=== PATIENT | male | born 1965 | race Caucasian/White ===

== ENCOUNTER 2017-06-02 10:52 | Emergency (ER) | payer BC, OTHER ==
[2017-06-02 13:17] VITALS: BP 115/77
--- NOTE | 2017-06-03 22:18 | UC ---
Darrel Nick Nilda, scribed for Nicolas Smith MD on 06/02/17 at 1331 . FLU HPI - HPI Summary HPI Summary: This patient is a 52 year old M presenting to [facility] with a chief complaint of constant flu-like symptoms for the past 5 days. The patient rates the pain 2/10 in severity. Symptoms aggravated and alleviated by nothing. Patient reports cough, rhinorrhea, body aches, fever, and headache. - History of Current Complaint Chief Complaint: UCGeneralIllness Stated Complaint: COUGH,SORE THROAT Time Seen by Provider: 06/02/17 13:26 Hx Obtained From: Patient Onset/Duration: Sudden Onset, Lasting Days, Still Present Severity Initially: Mild Pain Intensity: 2 Pain Scale Used: 0-10 Numeric Associated Signs & Symptoms: Positive: Fever, Myalgia, Cough, Headache - Allergy/Home Medications Allergies/Adverse Reactions: Allergies Allergy/AdvReac Type Severity Reaction Status Date / Time No Known Allergies Allergy Verified 06/02/17 13:17 Home Medications: Home Medications Ibuprofen [Ibuprofen 200] 400 mg PO Q6HR PRN 06/02/17 [History Confirmed ] PMH/Surg Hx/FS Hx/Imm Hx Previously Healthy: Yes - Surgical History Surgical History: None - Family History Known Family History: Negative: Cardiac Disease, Hypertension, Diabetes - Social History Alcohol Use: Daily Alcohol Amount: 1beer/day Substance Use Type: None Smoking Status (MU): Heavy Every Day Tobacco Smoker Type: Cigarettes - Immunization History Most Recent Tetanus Shot: unknown Review of Systems Constitutional: Fever ENT: Nasal Discharge Respiratory: Cough Musculoskeletal: Myalgia Neurological: Headache All Other Systems Reviewed And Are Negative: Yes Physical Exam Triage Information Reviewed: Yes Vital Signs: Initial Vital Signs Temp 98.7 F 06/02/17 13:14 Pulse 100 06/02/17 13:14 Resp 20 06/02/17 13:14 BP 115/77 06/02/17 13:14 Pulse Ox 97 06/02/17 13:14 Vital Signs Reviewed: Yes - Additional Comments Vital signs: Reviewed Gen.: Patient is a well developed and nourished male in no acute distress. Patient is sitting comfortably on the stretcher. Head: Normacephalic and atraumatic Eyes: PERRLA, EOMI x2. Ears: Right ear canal and TM WNL and Left ear canal and TM WNL Nose and mouth: Nose with dry mucosa and clear discharge, no pharyngeal erythema with no exudate. Neck: Supple, Positive bilateral submandibular and anterior cervical lymphadenopathy. No JVD Lungs: CTA B/L CVS: S1 & S2 present. No murmurs appreciated. ABDOMEN: Soft NT w/ positive BS. EXT: FROM x 4 NEURO: A+O X 3. Flu Course/Dx - Course Course Of Treatment: This patient is a 52 year old M presenting to [facility] with a chief complaint of constant flu-like symptoms for the past 5 days. The patient rates the pain 2/10 in severity. Symptoms aggravated and alleviated by nothing. Patient reports cough, rhinorrhea, body aches, fever, and headache. Pt declined flu test. Pt is stable and will be D/C with a Dx of presumptive influenza and a prescription for Tamiflu. I discussed all the findings and test results with the patient. Pt was instructed to return to the urgent care or go to ER immediately if any of the symptoms return or worsens. Plan of care was discussed with the patient and pt understands and agrees. All questions were answered to patient satisfaction. There were no further complaints or concerns. - Differential Dx/Diagnosis Differential Diagnosis/HQI/PQRI: Bronchitis, Influenza, Upper Respiratory Infection Provider Diagnoses: Presumptive influenza Discharge - Discharge Plan Condition: Stable Disposition: HOME Prescriptions: Oseltamivir CAP* [Tamiflu CAP*] 75 mg PO BID #10 cap Patient Education Materials: Influenza (DC) Referrals: [facility] [Outside] No Primary Care Phys,NOPCP [Primary Care Provider] - Additional Instructions: Increase fluid intake Take medication as indicated The documentation as recorded by the Darrel wheeler Nilda accurately reflects the service I personally performed and the decisions made by me, Nicolas Smith MD.
== END 2017-06-02 13:39 | disposition home or self-care (01) ==
LOC: UCEAST 10:52
DX: R05 Cough (principal); J34.89 Other specified disorders of nose and nasal sinuses; M79.1 Myalgia; R50.9 Fever, unspecified; R51 Headache; F17.210 Nicotine dependence, cigarettes, uncomplicated
CPT/HCPCS: 99212; G0463

== ENCOUNTER 2017-11-26 23:44 | Inpatient (IN) | payer BC, OTHER ==
[2017-11-27] MEDS ORDERED: Albuterol 0.5% CONC NEB.SOL* 5 MG/ML 20 ml BOT INH ONE ×2 (00:07→01:52)
[2017-11-27] MEDS ORDERED: Azithromycin TAB* 250 MG PO ONE (00:07)
[2017-11-27] MEDS ORDERED: methylPREDNISolone 125 MG* 2 ML VIAL IV ONE (00:07)
[2017-11-27] MEDS ORDERED: Magnesium Sulfate 2 GM IV* 2 GM/50 ML BAG IVPB ONE (00:07)
[2017-11-27 00:33] LABS: ABS Basophils 0.1 10^3/ul (0-0.2); ABS Eosinophils 0.6 10^3/ul (0-0.6); ABS Lymphocytes 2.6 10^3/ul (1.0-4.8); ABS Monocytes 1.5 10^3/ul (0-0.8); ABS Neutrophils 10.1 10^3/ul (1.5-7.7); ABS Nucleated RBC 0 10^3/ul; Hematocrit 50 % (42-52); Hemoglobin 17.5 g/dl (14.0-18.0); Lymphocyte % 17.6 % (25-47); Mean Corpuscular HGB Conc 35 g/dl (31-36); Mean Corpuscular Hemoglobin 35 pg (27-31); Mean Corpuscular Volume 99 fL (80-94); Mean Platelet Volume 7.2 um3 (7.4-10.4); Nucleated Red Blood Cells % 0; Platelet Count 231 10^3/ul (150-450); Red Blood Count 5.01 10^6/ul (4.00-5.40); Red Cell Distribution Width 13 % (10.5-15)
[2017-11-27 00:50] LABS: EGFR Non-African American 140.9 (>60)
--- NOTE | 2017-11-27 01:01 | ED ---
Shortness of Breath - HPI Summary HPI Summary: This is summer Mckeon documenting for attending Dr. Quan Patel MD. The patient is a 52 y/o M presenting to [facility] c/o SOB and respiratory distress starting two days ago and worsening today. He has had a nonproductive cough with increased sneezing that he reports seemed different than normal. His states that is only able to get half breaths in and out, and he hasn't been able to catch his breath. There is no pain associated. He denies CP. He has a remote hx of asthma and is also just getting over a cold. He smokes one pack of cigarettes a day. - History of Current Complaint Chief Complaint: EDShortnessOfBreath Time Seen by Provider: 11/27/17 00:01 Hx Obtained From: Patient Onset/Duration: Sudden Onset, Lasting Days, Still Present Timing: Constant Current Severity: Moderate Dyspnea At: Rest Aggrevating Factors: Nothing Alleviating Factors: Nothing Associated Signs & Symptoms: Negative - CP, Cough (Nonproductive) - Allergy/Home Medications Allergies/Adverse Reactions: Allergies Allergy/AdvReac Type Severity Reaction Status Date / Time No Known Allergies Allergy Verified 11/26/17 23:49 Home Medications: Home Medications Humira Pen 11/27/17 [History] PMH/Surg Hx/FS Hx/Imm Hx Endocrine/Hematology History: Denies: Hx Diabetes Respiratory History: Denies: Hx Asthma, Hx Chronic Obstructive Pulmonary Disease (COPD) - pt does smoke but undiagnosed - Immunization History Date of Tetanus Vaccine: utd Date of Influenza Vaccine: none Infectious Disease History: No Infectious Disease History: Denies: Traveled Outside the [place] in Last 30 Days - Family History Known Family History: Negative: Cardiac Disease, Hypertension, Diabetes - Social History Alcohol Use: Daily Alcohol Amount: 1beer/day Substance Use Type: Reports: None Smoking Status (MU): Heavy Every Day Tobacco Smoker Type: Cigarettes Review of Systems Positive: Other - increased sneezing Negative: Chest Pain Positive: Shortness Of Breath, Cough - nonproductive All Other Systems Reviewed And Are Negative: Yes Physical Exam - Summary Physical Exam Summary: Appearance: Well-appearing, Well-nourished, lying in bed comfortably with moderate distress Skin: Warm, dry, no obvious rash Eyes: sclera anicteric, no conjunctival pallor ENT: mucous membranes moist, pharynx appears normal Neck: Supple, nontender Respiratory: Clear to auscultation, obvious moderate respiratory distress, belly breathing, audible wheezes, prolonged expiratory phase, diffuse aeration Cardiovascular: Normal S1, S2. No murmurs. Normal distal pulses in tibial and radial bilaterally. Abdomen: Soft, nontender, normal active bowel sounds present Musculoskeletal: Normal, Strength/ROM Intact Neurological: A&Ox3, awake and alert, mentation is normal, speech is fluent and appropriate Psychiatric: affect is normal, does not appear anxious or depressed Triage Information Reviewed: Yes Vital Signs On Initial Exam: Initial Vitals Temp Pulse Resp BP Pulse Ox 98.3 F 109 22 143/97 91 11/26/17 23:49 11/26/17 23:49 11/26/17 23:49 11/26/17 23:49 11/26/17 23:49 Vital Signs Reviewed: Yes Diagnostics - Vital Signs Vital Signs Temp Pulse Resp BP Pulse Ox 11/27/17 00:39 108 27 139/97 98 11/27/17 00:25 108 29 130/100 98 11/27/17 00:21 106 20 97 11/27/17 00:04 27 134/96 11/27/17 00:01 23 11/26/17 23:59 33 155/90 11/26/17 23:49 98.3 F 109 22 143/97 91 - Laboratory Lab Results: Lab Results 11/27/17 11/27/17 Range/Units 00:19 00:19 WBC 15.0 H (3.5-10.8) 10^3/ul RBC 5.01 (4.00-5.40) 10^6/ul Hgb 17.5 (14.0-18.0) g/dl Hct 50 (42-52) % MCV 99 H (80-94) fL MCH 35 H (27-31) pg MCHC 35 (31-36) g/dl RDW 13 (10.5-15) % Plt Count 231 (150-450) 10^3/ul MPV 7.2 L (7.4-10.4) um3 Neut % (Auto) 67.6 (38-83) % Lymph % (Auto) 17.6 L (25-47) % [place] % (Auto) 10.1 H (0-7) % Eos % (Auto) 4.0 (0-6) % Baso % (Auto) 0.7 (0-2) % Absolute Neuts (auto) 10.1 H (1.5-7.7) 10^3/ul Absolute Lymphs (auto) 2.6 (1.0-4.8) 10^3/ul Absolute Monos (auto) 1.5 H (0-0.8) 10^3/ul Absolute Eos (auto) 0.6 (0-0.6) 10^3/ul Absolute Basos (auto) 0.1 (0-0.2) 10^3/ul Absolute Nucleated RBC 0 10^3/ul Nucleated RBC % 0 Sodium 132 L (135-145) mmol/L Potassium 3.7 (3.5-5.0) mmol/L Chloride 98 L (101-111) mmol/L Carbon Dioxide 23 (22-32) mmol/L Anion Gap 11 (2-11) mmol/L BUN 5 L (6-24) mg/dL Creatinine 0.60 L (0.67-1.17) mg/dL Est GFR ( Amer) 170.5 (>60) Est GFR (Non-Af Amer) 140.9 (>60) BUN/Creatinine Ratio 8.3 (8-20) Glucose 110 H (70-100) mg/dL Calcium 9.5 (8.6-10.3) mg/dL Total Bilirubin 0.40 (0.2-1.0) mg/dL AST 20 (13-39) U/L ALT 16 (7-52) U/L Alkaline Phosphatase 85 (34-104) U/L Troponin I 0.00 (<0.04) ng/mL Total Protein 7.8 (6.4-8.9) g/dL Albumin 4.1 (3.2-5.2) g/dL Globulin 3.7 (2-4) g/dL Albumin/Globulin Ratio 1.1 (1-3) Result Diagrams: 11/27/17 00:19 11/27/17 00:19 Lab Statement: Any lab studies that have been ordered have been reviewed, and results considered in the medical decision making process. - Radiology CXR Xray Interpretation: No Acute Changes - No acute disease. ED physician has reviewed this report. Radiology Interpretation Completed By: Radiologist - EKG 00:15 Cardiac Rate: Tachycardia - 109 BPM EKG Rhythm: Sinus Tachycardia EKG Interpretation: ST O/W nml. Course/Dx - Diagnoses Differential Diagnosis/HQI/PQRI: Positive: Asthma, Bronchitis, CHF, Chest Wall Pain, COPD Exacerbation, Pneumonia, Pneumothorax, Pulmonary Embolism Provider Diagnoses: COPD exacerbation, Respiratory distress - Physician Notifications Discussed Care of Patient With: Lyle Head Time Discussed With Above Provider: 03:43 Instructed by Provider To: Admit As Inpatient Admit/Transition Orders Completed By ED Provider: Yes Discharge - Sign-Out/Discharge Documenting (check all that apply): Patient Departure - Pt will be admitted to [facility]. - Discharge Plan Condition: Guarded Disposition: ADMITTED TO [facility] - Billing Disposition and Condition Condition: GUARDED Disposition: Admitted to [facility]
[2017-11-27] MEDS ORDERED: Ondansetron ODT TAB* 4 MG PO PRN (04:26)
[2017-11-27] MEDS ORDERED: Albuterol 2.5 MG/3 ML NEB.SOL* (0.083%) INH PRN (04:26)
[2017-11-27] MEDS ORDERED: Melatonin 3 MG TAB PO PRN (04:26)
[2017-11-27] MEDS ORDERED: Acetaminophen TAB* 325 MG PO PRN (04:26)
--- NOTE | 2017-11-27 04:32 | HP ---
H&P (Free Text) History and Physical: PCP: none, formerly Jasper Denney MD Date/Time: 4521 CC: SOB HPI: Mr Mcgowan is a 52YO male HX exercise induced asthma & ureterolithiasis who presents with onset Tuesday of cough and progressive SOB with scant clear phlegm & mild sweats, but no chest pain, palpitations, F/C, or palpitations. He has had some light-headedness and emesis 2nd cough, but no nausea. He denies changes in bowel/bladder, headache, or other issues. ED evaluation is notable for a positive SIRS screen 2nd tachycardia & tachypnea, w/o leukocytosis. He had some hypoxia into the high 80s/low 90s. CXR is negative. He reports smoking 1-2 PPD escalating recently, starting at ~age 15. Father had COPD. 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; full code status FamHx: Mother: passed 88 2nd "old age"; Father: passed 82 2nd complications of COPD & dementia; sister x2: alive, healthy; brothers x2: alive, healthy ROS: as above, otherwise reviewed and all were negative vitals: Vital Signs Temp 37.2 C 11/27/17 05:14 Pulse 121 11/27/17 05:14 Resp 30 11/27/17 05:14 BP 122/82 11/27/17 05:14 Pulse Ox 90 11/27/17 05:14 Intake & Output 11/26/17 11/26/17 11/27/17 11:59 23:59 11:59 Intake Total 50 Balance 50 Weight 79.379 kg Intake: IV Fluids 50 Constitutional: NAD, normally developed, overweight white male HEENM: atraumatic; sclera/conjunctiva: anicteric/clear; hearing: clinically intact; oropharynx: clear, mucosa moist Neck: soft tissue: non-tender; thyroid: normal Pulmonary: diminished B w/ scant L>R end-expiratory wheeze, fair to poor aeration, no accessory muscle use CV:TR/RR, normal S1S2, no carotid bruit, no jugular venous distention, 2+ B DP/ PT, no edema Abdominal: soft, non-distended, non-tender, no rebound/guarding/rigidity, normoactive bowel sounds, no hepatosplenomegaly or masses, no costovertebral angle tenderness Musculoskeletal: general: grossly intact Integumental: no acute issues Psychiatric orientation: AA&O to PPS affect: calm mood: cooperative eye contact: fair content: reliable responses: timely insight: fair to good Testing: Lab Results 11/27/17 11/27/17 11/27/17 Range/Units 00:19 00:19 05:11 WBC 15.0 H (3.5-10.8) 10^3/ul RBC 5.01 (4.00-5.40) 10^6/ul Hgb 17.5 (14.0-18.0) g/dl Hct 50 (42-52) % MCV 99 H (80-94) fL MCH 35 H (27-31) pg MCHC 35 (31-36) g/dl RDW 13 (10.5-15) % Plt Count 231 (150-450) 10^3/ul MPV 7.2 L (7.4-10.4) um3 Neut % (Auto) 67.6 (38-83) % Lymph % (Auto) 17.6 L (25-47) % [place] % (Auto) 10.1 H (0-7) % Eos % (Auto) 4.0 (0-6) % Baso % (Auto) 0.7 (0-2) % Absolute Neuts (auto) 10.1 H (1.5-7.7) 10^3/ul Absolute Lymphs (auto) 2.6 (1.0-4.8) 10^3/ul Absolute Monos (auto) 1.5 H (0-0.8) 10^3/ul Absolute Eos (auto) 0.6 (0-0.6) 10^3/ul Absolute Basos (auto) 0.1 (0-0.2) 10^3/ul Absolute Nucleated RBC 0 10^3/ul Nucleated RBC % 0 INR (Anticoag Therapy) 0.92 (0.77-1.02) APTT 30.9 (26.0-36.3) seconds Sodium 132 L (135-145) mmol/L Potassium 3.7 (3.5-5.0) mmol/L Chloride 98 L (101-111) mmol/L Carbon Dioxide 23 (22-32) mmol/L Anion Gap 11 (2-11) mmol/L BUN 5 L (6-24) mg/dL Creatinine 0.60 L (0.67-1.17) mg/dL Est GFR ( Amer) 170.5 (>60) Est GFR (Non-Af Amer) 140.9 (>60) BUN/Creatinine Ratio 8.3 (8-20) Glucose 110 H (70-100) mg/dL Calcium 9.5 (8.6-10.3) mg/dL Total Bilirubin 0.40 (0.2-1.0) mg/dL AST 20 (13-39) U/L ALT 16 (7-52) U/L Alkaline Phosphatase 85 (34-104) U/L Troponin I 0.00 (<0.04) ng/mL Total Protein 7.8 (6.4-8.9) g/dL Albumin 4.1 (3.2-5.2) g/dL Globulin 3.7 (2-4) g/dL Albumin/Globulin Ratio 1.1 (1-3) ECG, personally reviewed: sinus tachycardia rate 109, mild ST depression II/III/ AVF; no comparison CXR, personally reviewed: no acute process Impression: 52M w/ minimal PMHx presents with COPD exacerbation & abnormal ECG DIAGNOSIS & PLAN Primary COPD exacerbation : albuterol : mometasone/formoterol : tiotropium : IV methylprednisolone : incentive spirometry : supplemental oxygen : supportive care : smoking cessation advised, mild-moderate motivation abnormal ECG : asympotomatic, likely demand ischemic change : trend troponin Admission Rational: Inpatient for COPD management not anticipated to be adequately controlled w/i 48h to allow for discharge DVTp: heparin SQ Code Status: full
[2017-11-27 05:29] LABS: INR 0.92 (0.77-1.02)
[2017-11-27] MEDS: NS 0.9% 1000 ML* 1,000 ML IV SCH (05:40)
[2017-11-27] MEDS: Heparin VIAL(*) 5000 UNITS/ML VIAL (FIVE THOUSAND) SUBCUT SCH ×3 (05:40→21:51)
[2017-11-27] MEDS: Omeprazole CAP* 20 MG PO SCH (05:41)
[2017-11-27] MEDS ORDERED: Albuterol 2.5 MG/3 ML NEB.SOL* (0.083%) INH SCH (07:00)
[2017-11-27] MEDS: Albuterol 2.5 MG/3 ML NEB.SOL* (0.083%) INH SCH ×5 (07:30→23:32)
[2017-11-27] MEDS: Tiotropium CAP.INH* CAP.INH/18 MCG (USE ORDER SET !) INH SCH (07:31)
[2017-11-27] MEDS: Mometasone/Formoter 200/5 MDI INH SCH ×2 (07:31→20:57)
[2017-11-27 07:38] LABS: ABS Basophils 0 10^3/ul (0-0.2); ABS Eosinophils 0 10^3/ul (0-0.6); ABS Lymphocytes 0.4 10^3/ul (1.0-4.8); ABS Monocytes 0.1 10^3/ul (0-0.8); ABS Neutrophils 9.7 10^3/ul (1.5-7.7); ABS Nucleated RBC 0 10^3/ul; Eosinophil % 0.1 % (0-6); Hematocrit 47 % (42-52); Hemoglobin 16.6 g/dl (14.0-18.0); Lymphocyte % 4.3 % (25-47); Mean Corpuscular HGB Conc 35 g/dl (31-36); Mean Corpuscular Hemoglobin 35 pg (27-31); Mean Corpuscular Volume 99 fL (80-94); Mean Platelet Volume 7.7 um3 (7.4-10.4); Nucleated Red Blood Cells % 0.1; Platelet Count 221 10^3/ul (150-450); Red Blood Count 4.74 10^6/ul (4.00-5.40); Red Cell Distribution Width 13 % (10.5-15); White Blood Count 10.3 10^3/ul (3.5-10.8)
--- NOTE | 2017-11-27 07:46 | RAD ---
INDICATION: Dyspnea COMPARISON: None TECHNIQUE: PA and lateral dual-energy views were obtained. FINDINGS: Bones/Soft Tissues: There are no acute bony findings. Cardiomediastinal: The cardiomediastinal silhouette is normal. Lungs: There are no infiltrates. Pleura: There are no pleural effusions. Other: None IMPRESSION: NO ACTIVE DISEASE. R1
[2017-11-27] MEDS ORDERED: Pneumococcal *Vac Polyvalent 0.5 ML VIAL IM ONE (09:00)
[2017-11-27] MEDS ORDERED: Spiriva Inhaler DEVICE* 1 EACH DEVICE INH SCH (09:00)
[2017-11-27] MEDS: cefTRIAXone(*) 1 GM in NS 0.9% 50 ML* 50 ML IVPB SCH (10:56)
--- NOTE | 2017-11-27 16:30 | PN ---
Subjective Date of Service: 11/27/17 Interval History: HOSPITALIST PROGRESS NOTE Patient seen and examined at bedside. Care reviewed and d/w Annalisa Roland RN. He feels a little better today, but breathing is not back to baseline. Still has frequent moist cough. Family History: Unchanged from Admission Social History: Unchanged from Admission Past Medical History: Unchanged from Admission Objective Active Medications: Acetaminophen (Tylenol Tab*) 650 mg PO Q6H PRN PRN Reason: FEVER/PAIN Last Admin: 11/27/17 15:13 Dose: 650 mg Albuterol (Ventolin 2.5 Mg/3 Ml Neb.Joseline*) 2.5 mg INH Q2H PRN PRN Reason: SOB/WHEEZING Albuterol (Ventolin 2.5 Mg/3 Ml Neb.Joseline*) 2.5 mg INH [id number] AWAKE [facility] Last Admin: 11/27/17 14:33 Dose: 2.5 mg Azithromycin (Zithromax Tab*) 500 mg PO DAILY@2100 [facility] Device (Tiotropium Inhaler Device*) 1 each INH .USE w/ SPIRIVA CAPS [facility] Heparin Sodium (Porcine) (Heparin Vial(*)) 5,000 units SUBCUT Q8HR [facility] Last Admin: 11/27/17 15:07 Dose: 5,000 units Sodium Chloride (Ns 0.9% 1000 Ml*) 1,000 mls @ 50 mls/hr IV PER RATE [facility] Last Admin: 11/27/17 05:40 Dose: 50 mls/hr Ceftriaxone Sodium 1 gm/ (Sodium Chloride) 50 mls @ 200 mls/hr IVPB Q24H [facility] Last Admin: 11/27/17 10:56 Dose: 200 mls/hr Melatonin (Melatonin) 3 mg PO BEDTIME PRN; Protocol PRN Reason: Sleep Methylprednisolone Sodium Succinate (Solu-Medrol 40 Mg) 40 mg IV Q8H [facility] Mometasone Furoate/Formoterol Fumar (Dulera 200/5 Mdi*) 2 puff INH BID [facility] Last Admin: 11/27/17 07:31 Dose: 2 puff Omeprazole (Prilosec Cap*) 20 mg PO DAILY@0600 [facility] Last Admin: 11/27/17 05:41 Dose: 20 mg Ondansetron HCl (Zofran Odt Tab*) 4 mg PO Q6H PRN PRN Reason: n/v Tiotropium [place] (Spiriva Cap.Inh*) 1 cap INH DAILY [facility] Last Admin: 11/27/17 07:31 Dose: 1 inh Vital Signs - 8 hr 11/27/17 11/27/17 11:01 14:35 Temperature 98.9 F Pulse Rate 106 106 Respiratory 20 16 Rate Blood Pressure 115/68 (mmHg) O2 Sat by Pulse 95 98 Oximetry Oxygen Devices in Use Now: Nasal Cannula - 2 liters Appearance: Pleasant gentleman sitting up in bed in NAD. Eyes: No Scleral Icterus Ears/Nose/Mouth/Throat: Mucous Membranes Moist Neck: Trachea Midline Respiratory: Symmetrical Chest Expansion and Respiratory Effort, - - BS+ bilaterally with scattered rhonchi and wheezing Cardiovascular: RRR - Normal S1 and S2 Abdominal: NL Sounds; No Tenderness; No Distention Extremities: No Edema Neurological: Alert and Oriented x 3, NL Muscle Strength and Tone Result Diagrams: 11/27/17 06:59 11/27/17 00:19 Assess/Plan/Problems-Billing Assessment: Mr Mcgowan is a 52yo M with PMH of asthma, psoriasis, nephrolithiasis, tobacco abuse, who presented to ED with c/o dyspnea, found to have COPD exacerbation secondary to acute bronchitis. - Patient Problems (1) COPD exacerbation Comment: - Secondary to acute bronchitis. - Continue bronchodilators, steroids, Ceftriaxone/Zithromax. - Will need PFTs as outpatient when this episode of exacerbation is resolved. (2) Abnormal EKG Comment: - EKG shows minimal ST depression. No c/o chest pain/pressure. - Trend troponins. (3) Tobacco abuse Comment: - Will give Nicotine supplementation and discuss tobacco cessation when breathing improved. (4) DVT prophylaxis Comment: - SQ heparin. (5) Full code status Status and Disposition: Inpatient.
[2017-11-27] MEDS ORDERED: Mouth Piece, Nicotine* 1 EACH CARTRIDGE INH PRN (16:37)
[2017-11-27] MEDS: Nicotine Inhaler* 10 MG AMP INH PRN ×2 (19:17→21:51)
[2017-11-27] MEDS ORDERED: Azithromycin TAB* 250 MG PO SCH (21:00)
[2017-11-28] MEDS: NS 0.9% 1000 ML* 1,000 ML IV SCH (01:01)
[2017-11-28] MEDS: Albuterol 2.5 MG/3 ML NEB.SOL* (0.083%) INH SCH ×3 (03:37→12:30)
[2017-11-28] MEDS: Heparin VIAL(*) 5000 UNITS/ML VIAL (FIVE THOUSAND) SUBCUT SCH (05:35)
[2017-11-28] MEDS: Omeprazole CAP* 20 MG PO SCH (05:35)
[2017-11-28 07:01] LABS: ABS Basophils 0.1 10^3/ul (0-0.2); ABS Eosinophils 0 10^3/ul (0-0.6); ABS Lymphocytes 2.6 10^3/ul (1.0-4.8); ABS Monocytes 1.1 10^3/ul (0-0.8); ABS Neutrophils 13.1 10^3/ul (1.5-7.7); ABS Nucleated RBC 0 10^3/ul; Eosinophil % 0.1 % (0-6); Hematocrit 44 % (42-52); Hemoglobin 15.4 g/dl (14.0-18.0); Lymphocyte % 15.2 % (25-47); Mean Corpuscular HGB Conc 35 g/dl (31-36); Mean Corpuscular Hemoglobin 35 pg (27-31); Mean Corpuscular Volume 99 fL (80-94); Mean Platelet Volume 7.6 um3 (7.4-10.4); Nucleated Red Blood Cells % 0; Platelet Count 199 10^3/ul (150-450); Red Blood Count 4.41 10^6/ul (4.00-5.40); Red Cell Distribution Width 13 % (10.5-15); White Blood Count 16.9 10^3/ul (3.5-10.8)
[2017-11-28 07:12] LABS: EGFR Non-African American 128.5 (>60)
[2017-11-28] MEDS: cefTRIAXone(*) 1 GM in NS 0.9% 50 ML* 50 ML IVPB SCH (08:07)
[2017-11-28] MEDS: Tiotropium CAP.INH* CAP.INH/18 MCG (USE ORDER SET !) INH SCH (08:21)
[2017-11-28] MEDS: Mometasone/Formoter 200/5 MDI INH SCH (08:21)
[2017-11-28] MEDS ORDERED: methylPREDNISolone SOD 40 MG* 1 ML VIAL IV SCH (09:00)
[2017-11-28 10:11] VITALS: BP 122/82
--- NOTE | 2017-11-29 15:37 | DS ---
CC: Dr. Castillo Benitez; [facility].* DISCHARGE SUMMARY: DATE OF ADMISSION: 11/27/17 DATE OF DISCHARGE: 11/28/17 PRIMARY CARE PROVIDER: The patient has no primary care provider, but this will be arranged. DISCHARGE DIAGNOSES: 1. Acute chronic obstructive pulmonary disease exacerbation secondary to acute bronchitis. 2. Pustular psoriasis. 3. Nephrolithiasis, status post lithotripsy. 4. Tobacco abuse. MEDICATION LIST: 1. Humira 40 mg IM as scheduled. 2. Ibuprofen 400 mg p.o. q.6 hours p.r.n. pain or fever. 3. Prednisone taper as follows: 40 mg for 5 days, 20 mg for 5 days, 10 mg for 5 days, 5 mg for 5 days, and stop. 4. Cefuroxime 250 mg p.o. daily for 5 more days. 5. Spiriva 1 capsule inhaled daily. 6. Omeprazole 10 mg p.o. daily at 6 a.m. 7. Nicotine patch 20 mg topical daily and remove at bedtime. 8. Nicotine inhaler 10 mg inhaled q.12 p.r.n. cravings. 9. Zithromax 250 mg p.o. daily for 3 more days. 10. Albuterol HFA 2 puffs inhaled q.6 hours p.r.n. shortness of breath. HOSPITAL COURSE: Mr. Mcgowan is a 52-year-old male with a past medical history as stated above that presented to the emergency room on November 27 with complaints of cough, progressive shortness of breath and mild sweats. For more details about his presentation, I refer you to his history and physical. In the emergency room, the patient had a chest x-ray. The chest x-ray showed no active disease and laboratory test showed WBC of 15,000. The patient was admitted under the impression of acute COPD exacerbation secondary to bronchitis and he responded well to antibiotics, bronchodilators, and steroids. The patient received education regarding the importance of tobacco cessation to prevent further lung damage. He would also benefit of PFTs as outpatient after this episode of exacerbation is controlled. The patient's EKG on admission showed very minimal ST depressions on the inferior leads. They resolved later on. Serial troponins were negative. This may represent increased demand in the setting of COPD exacerbation. The patient had no complaints of chest pain. He may benefit further cardiac evaluation including a possible stress test as outpatient after this episode of exacerbation is resolved. The patient does not have a primary care provider at this point. He will be seen at the [facility] and arrangements will be made to set up a new primary care provider. He is medically stable for discharge today. PHYSICAL EXAMINATION: Vital Signs: Temperature 98.1, heart rate is 95, respiratory rate is 16, oxygen saturation 92% on room air, blood pressure is 122 /82. General: The patient is a pleasant gentleman, sitting up in the bed, in no acute distress. CVS: Normal S1, S2. Regular rate and rhythm. Chest: Breath sounds present bilaterally with no added sounds. Abdomen is soft. Bowel sounds are present. Neuro: He is alert and oriented x3. He is able to move all 4 extremities. DIET: Regular diet. ACTIVITIES: As tolerated. DISPOSITION: To home. STATUS WHILE IN THE HOSPITAL: Inpatient. Please keep in mind that this is a summarized version of this patient's hospital stay. If you need more information, please feel free to call me at or please obtain the full medical records. TIME SPENT: Approximately, 45 minutes were spent to complete this discharge. [id number]/CPS #: [id number] MTDD
== END 2017-11-28 12:05 | disposition home or self-care (01) | DRG 140 ==
LOC: ED 23:44 → MEDTELE 11-27 03:51
PROVIDERS: ADMIT Hospitalist; ATTEND Internal Medicine
DX: J44.0 Chronic obstructive pulmonary disease with (acute) lower respiratory infection (principal); J44.1 Chronic obstructive pulmonary disease with (acute) exacerbation; J20.9 Acute bronchitis, unspecified; F17.210 Nicotine dependence, cigarettes, uncomplicated; R09.02 Hypoxemia; L40.1 Generalized pustular psoriasis; E66.3 Overweight; R00.0 Tachycardia, unspecified; R94.31 Abnormal electrocardiogram [ECG] [EKG]; Z87.442 Personal history of urinary calculi; Z72.89 Other problems related to lifestyle; Z81.8 Family history of other mental and behavioral disorders; Z68.26 Body mass index [BMI] 26.0-26.9, adult; Z82.5 Family history of asthma and other chronic lower respiratory diseases; Z23 Encounter for immunization
CPT/HCPCS: 36415; 71046; 80048; 80053; 84484; 85025; 85610; 85730; 90732; 93005; 94640; 99285; 99406; A9270-GY; J0696; J1644; J2920; J2930; J3475; J7611